=== PATIENT | male | born 1985 ===

== ENCOUNTER 2016-10-04 15:19 | Inpatient (IN) | payer OTHER ==
[2016-10-04] MEDS ORDERED: GEODON IM ONE ×2 (18:06→18:10)
--- NOTE | 2016-10-04 18:13 | Emergency Department Report ---
HPI - General Chief Complaint: Psych Time Seen by Provider: 10/04/16 18:06 - HPI HPI: This is a 31-year-old male who is unable to give the history. Information obtained from his father at bedside. Patient is brought to ED in handcuffs accompanied by PD. Father stated the patient has a history of schizophrenia lives in [place] where he gets his care. The patient is down here visiting when today he started behaving strangely according to his housemates. Patient became unresponsive to verbal command was walking around the house and had violent tendencies. He was hitting mantilla and other people's cars. ED Past Medical Hx - Medications Home Medications: Home Medications Medication Instructions Recorded Confirmed Last Taken Type Albuterol Sulfate [Ventolin HFA] 2 puff IH Q4H PRN 10/04/16 10/04/16 Unknown History ED Review of Systems ROS: Stated complaint: MH EVAL Other details as noted in HPI Comment: Unobtainable due to pts medical conditions Physical Exam - Physical Exam Physical Exam: Gen. alert and oriented 3 in no distress Head atraumatic normocephalic Eyes PERR LA EOMI Chest regular rate and rhythm normal S1-S2 lungs clear bilaterally Abdomen soft nondistended Back no point tenderness paravertebral tenderness Neuro no focal deficit. Psych agitation, auditory hallucinations, delusions, violent behavior requiring restraints by PD. ED Course - Reevaluation(s) Reevaluation #1: 10/05/16 01:42 Repeated vital signs are within normal limits. Initial elevated heart rate and temperature with likely due to the acute psychosis. And patient agitation prior to being brought to the ED. ED Medical Decision Making - Lab Data Result diagrams: 10/04/16 20:35 10/04/16 20:52 Critical care attestation.: If time is entered above; I have spent that time in minutes in the direct care of this critically ill patient, excluding procedure time. ED Disposition Clinical Impression: Acute psychosis Condition: Stable Referrals: PRIMARY CARE, [Primary Care Provider] - 3-5 Days
[2016-10-04 19:42] LABS: Urine Drugs of Abuse Note Disclamer
[2016-10-04 20:07] LABS: Bilirubin,Urine NEG (Negative); Blood,Urine MOD (Negative); Ketones,Urine 20 mg/dL (Negative); Leukocyte Esterase,Urine NEG (Negative); Nitrite,Urine NEG (Negative)
[2016-10-04 20:14] LABS: Anion Gap TNR mmol/L; Blood Urea Nitrogen TNR mg/dL (9-20); Carbon Dioxide TNR mmol/L (22-30); Chloride TNR mmol/L (98-107); Potassium TNR mmol/L (3.6-5.0); Sodium TNR mmol/L (137-145)
[2016-10-04 20:15] LABS: Alanine Aminotransferase TNR units/L (7-56); Albumin TNR g/dL (3.9-5); Albumin/Globulin Ratio TNR %; Alkaline Phosphatase TNR units/L (35-129); BUN/Creatinine Ratio TNR; Bilirubin,Total TNR mg/dL (0.1-1.2); Calcium TNR mg/dL (8.4-10.2); Glucose TNR mg/dL (75-100); Total Protein TNR g/dL (6.3-8.2)
[2016-10-04 21:13] LABS: Anion Gap 24 mmol/L; Blood Urea Nitrogen 13 mg/dL (9-20); Calcium 9.7 mg/dL (8.4-10.2); Carbon Dioxide 20 mmol/L (22-30); Chloride 97.5 mmol/L (98-107); Glucose 150 mg/dL (75-100); Potassium 3.3 mmol/L (3.6-5.0); Sodium 138 mmol/L (137-145)
[2016-10-04 21:26] LABS: Hematocrit 42.8 % (35.5-45.6); Hemoglobin 14.3 gm/dl (11.8-15.2); Mean Corpuscular HGB Conc 33 % (32-34); Mean Corpuscular Hemoglobin 27 pg (28-32); Mean Corpuscular Volume 81 fl (84-94); Platelet Count 340 K/mm3 (140-440); Red Blood Count 5.29 M/mm3 (3.65-5.03); Red Cell Distribution Width 14.1 % (13.2-15.2); White Blood Count 11.9 K/mm3 (4.5-11.0)
[2016-10-05] MEDS ORDERED: NACL 0.9% 1000 ML 1,000 ML IV ONE (10:15)
--- NOTE | 2016-10-05 10:25 | Emergency Department Report ---
Blank Doc - Documentation Documentation: Spoke with ENGINEERING RECRUITER who states he added a CK given the patient's aviator and rigidity. CK comes back elevated at >1500. I subsequently contacted the hospitalist for admission for rhabdomyolysis. 1 L of normal saline ordered
[2016-10-05] MEDS ORDERED: MORPHINE IV PRN (10:44)
[2016-10-05] MEDS ORDERED: TYLENOL PO PRN (10:44)
[2016-10-05] MEDS ORDERED: ZOFRAN IV PRN (10:44)
[2016-10-05] MEDS ORDERED: DULCOLAX PR PRN (10:44)
--- NOTE | 2016-10-05 11:10 | History and Physical Report ---
<COREY SIEGEL - Last Filed: 10/05/16 10:51> History of Present Illness Date of examination: 10/05/16 Date of admission: 10/05/2016 Chief complaint: Schizophrenia, acute psychosis History of present illness: Patient is a 31 years old male with past medical history of schizophrenia. Patient confused, agitated making disoriented statements, therefore, unable to obtain history. Patient came today to the emergency department in handcuffs accompanied by police magistrate for acute psychosis. Patient was found by his roommates confused yelling, tensed up. Father stated that patient became unresponsive to verbal command walking around the house and had violent tendencies. History obtained form ER physician and charts. Past History Past Medical History: other (schizophrenia) Past Surgical History: No surgical history Social history: no significant social history Family history: no significant family history Medications and Allergies Allergies Allergy/AdvReac Type Severity Reaction Status Date / Time No Known Allergies Allergy Unverified 10/04/16 18:14 Home Medications Medication Instructions Recorded Confirmed Last Taken Type Albuterol Sulfate [Ventolin HFA] 2 puff IH Q4H PRN 10/04/16 10/04/16 Unknown History Active Meds: Active Medications Sodium Chloride (Nacl 0.9% 1000 Ml) 1,000 mls @ 999 mls/hr IV ONCE ONE Stop: 10/05/16 11:15 Review of Systems ROS unobtainable: due to mental status (unable to obtained due to patient mental status) Exam - Constitutional Vitals: Temp Pulse Resp BP Pulse Ox 98.6 F 107 H 17 120/75 98 10/05/16 08:41 10/05/16 08:41 10/05/16 08:41 10/05/16 08:41 10/05/16 08:41 General appearance: Present: no acute distress - EENT Eyes: Present: PERRL ENT: other (ladonna) - Neck Neck: Present: supple - Respiratory Respiratory effort: normal Respiratory: bilateral: CTA - Cardiovascular Heart rate: 107 Rhythm: regular - Extremities Extremities: no ischemia, No edema Peripheral Pulses: within normal limits - Abdominal General gastrointestinal: Present: soft, non-tender Male genitourinary: Present: deferred - Rectal Rectal Exam: deferred - Integumentary Integumentary: Present: clear, warm, dry - Psychiatric Psychiatric: agitated (yelling and angry) - Neurologic Neurologic: moves all extremities - Allied Health Allied health notes reviewed: nursing Results - Labs CBC & Chem 7: 10/04/16 20:35 10/04/16 20:52 Labs: Laboratory Last Values WBC 11.9 K/mm3 (4.5-11.0) H 10/04/16 20:35 RBC 5.29 M/mm3 (3.65-5.03) H 10/04/16 20:35 Hgb 14.3 gm/dl (11.8-15.2) 10/04/16 20:35 Hct 42.8 % (35.5-45.6) 10/04/16 20:35 MCV 81 fl (84-94) L 10/04/16 20:35 MCH 27 pg (28-32) L 10/04/16 20:35 MCHC 33 % (32-34) 10/04/16 20:35 RDW 14.1 % (13.2-15.2) 10/04/16 20:35 Plt Count 340 K/mm3 (140-440) 10/04/16 20:35 Lymph % (Auto) Dermatopathologist 10/04/16 20:35 Parker % (Auto) Dermatopathologist 10/04/16 20:35 Eos % (Auto) Dermatopathologist 10/04/16 20:35 Baso % (Auto) Dermatopathologist 10/04/16 20:35 Lymph # Dermatopathologist 10/04/16 20:35 Parker # Dermatopathologist 10/04/16 20:35 Eos # Dermatopathologist 10/04/16 20:35 Baso # Dermatopathologist 10/04/16 20:35 Seg Neutrophils % Dermatopathologist 10/04/16 20:35 Seg Neutrophils # Dermatopathologist 10/04/16 20:35 Sodium 138 mmol/L (137-145) 10/04/16 20:52 Potassium 3.3 mmol/L (3.6-5.0) L 10/04/16 20:52 Chloride 97.5 mmol/L (98-107) L 10/04/16 20:52 Carbon Dioxide 20 mmol/L (22-30) L 10/04/16 20:52 Anion Gap 24 mmol/L 10/04/16 20:52 BUN 13 mg/dL (9-20) 10/04/16 20:52 Creatinine 1.0 mg/dL (0.8-1.5) 10/04/16 20:52 Estimated GFR > 60 ml/min 10/04/16 20:52 BUN/Creatinine Ratio 13.00 % 10/04/16 20:52 Glucose 150 mg/dL (75-100) H 10/04/16 20:52 Calcium 9.7 mg/dL (8.4-10.2) 10/04/16 20:52 Total Bilirubin TNR 10/04/16 19:30 AST TNR 10/04/16 19:30 ALT TNR 10/04/16 19:30 Alkaline Phosphatase TNR 10/04/16 19:30 Total Creatine Kinase 1555 units/L (55-170) H 10/05/16 08:44 Total Protein TNR 10/04/16 19:30 Albumin TNR 10/04/16 19:30 Albumin/Globulin Ratio TNR 10/04/16 19:30 Urine Color Stefanie (Yellow) 10/04/16 19:30 Urine Turbidity Clear (Clear) 10/04/16 19:30 Urine pH 6.0 (5.0-7.0) 10/04/16 19:30 Ur Specific [place] 1.030 (1.003-1.030) 10/04/16 19:30 Urine Protein 100 mg/dl mg/dL (Negative) 10/04/16 19:30 Urine Glucose (UA) 50 mg/dL (Negative) 10/04/16 19:30 Urine Ketones 20 mg/dL (Negative) 10/04/16 19:30 Urine Blood Mod (Negative) 10/04/16 19:30 Urine Nitrite Neg (Negative) 10/04/16 19:30 Urine Bilirubin Neg (Negative) 10/04/16 19:30 Urine Urobilinogen 2.0 mg/dL (<2.0) 10/04/16 19:30 Ur Leukocyte Esterase Neg (Negative) 10/04/16 19:30 Urine WBC (Auto) 5.0 /HPF (0.0-6.0) 10/04/16 19:30 Urine RBC (Auto) 110.0 /HPF (0.0-6.0) 10/04/16 19:30 Urine Opiates Screen Presumptive negative 10/04/16 19:30 Urine Methadone Screen Presumptive negative 10/04/16 19:30 Ur Barbiturates Screen Presumptive positive 10/04/16 19:30 Ur Phencyclidine Scrn Presumptive negative 10/04/16 19:30 Ur Amphetamines Screen Presumptive negative 10/04/16 19:30 U Benzodiazepines Scrn Presumptive negative 10/04/16 19:30 Urine Cocaine Screen Presumptive negative 10/04/16 19:30 U Marijuana (THC) Screen Presumptive negative 10/04/16 19:30 Drugs of Abuse Note Disclamer 10/04/16 19:30 Plasma/Serum Alcohol < 0.01 gm% (0-0.07) 10/04/16 20:52 Assessment and Plan Assessment and plan: ASSESSMENT/PLAN Rhabdomyolysis We will admit to the MED/SURG floor. Elevated Creatine Kinase IVF hydration Hypokalemia Replaced with 40MEQ potassium Closely monitor electrolytes Leukocytosis We will repeat CBC in live AM Acute psychosis Patient on 10:13 Bilateral soft wrist restraint Mental health consulted DVT prophylaxis Lovenox <MARLON LOFTON R - Last Filed: 10/05/16 11:52> Exam - Constitutional Vitals: Temp Pulse Resp BP Pulse Ox 98.6 F 109 H 15 128/67 97 10/05/16 08:41 10/05/16 11:16 10/05/16 11:16 10/05/16 11:16 10/05/16 10:46 Results - Labs CBC & Chem 7: 10/04/16 20:35 10/04/16 20:52 Labs: Laboratory Last Values WBC 11.9 K/mm3 (4.5-11.0) H 10/04/16 20:35 RBC 5.29 M/mm3 (3.65-5.03) H 10/04/16 20:35 Hgb 14.3 gm/dl (11.8-15.2) 10/04/16 20:35 Hct 42.8 % (35.5-45.6) 10/04/16 20:35 MCV 81 fl (84-94) L 10/04/16 20:35 MCH 27 pg (28-32) L 10/04/16 20:35 MCHC 33 % (32-34) 10/04/16 20:35 RDW 14.1 % (13.2-15.2) 10/04/16 20:35 Plt Count 340 K/mm3 (140-440) 10/04/16 20:35 Lymph % (Auto) Dermatopathologist 10/04/16 20:35 Parker % (Auto) Dermatopathologist 10/04/16 20:35 Eos % (Auto) Dermatopathologist 10/04/16 20:35 Baso % (Auto) Dermatopathologist 10/04/16 20:35 Lymph # Dermatopathologist 10/04/16 20:35 Parker # Dermatopathologist 10/04/16 20:35 Eos # Dermatopathologist 10/04/16 20:35 Baso # Dermatopathologist 10/04/16 20:35 Seg Neutrophils % Dermatopathologist 10/04/16 20:35 Seg Neutrophils # Dermatopathologist 10/04/16 20:35 Sodium 138 mmol/L (137-145) 10/04/16 20:52 Potassium 3.3 mmol/L (3.6-5.0) L 10/04/16 20:52 Chloride 97.5 mmol/L (98-107) L 10/04/16 20:52 Carbon Dioxide 20 mmol/L (22-30) L 10/04/16 20:52 Anion Gap 24 mmol/L 10/04/16 20:52 BUN 13 mg/dL (9-20) 10/04/16 20:52 Creatinine 1.0 mg/dL (0.8-1.5) 10/04/16 20:52 Estimated GFR > 60 ml/min 10/04/16 20:52 BUN/Creatinine Ratio 13.00 % 10/04/16 20:52 Glucose 150 mg/dL (75-100) H 10/04/16 20:52 Calcium 9.7 mg/dL (8.4-10.2) 10/04/16 20:52 Total Bilirubin TNR 10/04/16 19:30 AST TNR 10/04/16 19:30 ALT TNR 10/04/16 19:30 Alkaline Phosphatase TNR 10/04/16 19:30 Total Creatine Kinase 1555 units/L (55-170) H 10/05/16 08:44 Total Protein TNR 10/04/16 19:30 Albumin TNR 10/04/16 19:30 Albumin/Globulin Ratio TNR 10/04/16 19:30 Urine Color Stefanie (Yellow) 10/04/16 19:30 Urine Turbidity Clear (Clear) 10/04/16 19:30 Urine pH 6.0 (5.0-7.0) 10/04/16 19:30 Ur Specific [place] 1.030 (1.003-1.030) 10/04/16 19:30 Urine Protein 100 mg/dl mg/dL (Negative) 10/04/16 19:30 Urine Glucose (UA) 50 mg/dL (Negative) 10/04/16 19:30 Urine Ketones 20 mg/dL (Negative) 10/04/16 19:30 Urine Blood Mod (Negative) 10/04/16 19:30 Urine Nitrite Neg (Negative) 10/04/16 19:30 Urine Bilirubin Neg (Negative) 10/04/16 19:30 Urine Urobilinogen 2.0 mg/dL (<2.0) 10/04/16 19:30 Ur Leukocyte Esterase Neg (Negative) 10/04/16 19:30 Urine WBC (Auto) 5.0 /HPF (0.0-6.0) 10/04/16 19:30 Urine RBC (Auto) 110.0 /HPF (0.0-6.0) 10/04/16 19:30 Urine Opiates Screen Presumptive negative 10/04/16 19:30 Urine Methadone Screen Presumptive negative 10/04/16 19:30 Ur Barbiturates Screen Presumptive positive 10/04/16 19:30 Ur Phencyclidine Scrn Presumptive negative 10/04/16 19:30 Ur Amphetamines Screen Presumptive negative 10/04/16 19:30 U Benzodiazepines Scrn Presumptive negative 10/04/16 19:30 Urine Cocaine Screen Presumptive negative 10/04/16 19:30 U Marijuana (THC) Screen Presumptive negative 10/04/16 19:30 Drugs of Abuse Note Disclamer 10/04/16 19:30 Plasma/Serum Alcohol < 0.01 gm% (0-0.07) 10/04/16 20:52
[2016-10-05] MEDS ORDERED: K-DUR PO ONE (11:37)
[2016-10-05] MEDS ORDERED: KCL 10MEQ/100ML 10 MEQ/100 ML BAG IV SCH (13:00)
[2016-10-05] MEDS: KCL 10MEQ/100ML 10 MEQ/100 ML BAG IV SCH ×2 (13:19→14:42)
[2016-10-05] MEDS: NACL 0.9% 1000 ML 1,000 ML IV SCH ×2 (15:53→20:23)
--- NOTE | 2016-10-05 15:58 | Admit Criteria Form ---
Admission Criteria Documentation: MUSCULOSKELETAL DISEASE GRG Clinical Indications for Admission to Inpatient Care (Place 'X' for any and all applicable criteria): Hospital admission is needed for appropriate care of the patient because of 1 or more of the following: [ ]I. Fracture, dislocation, or other musculoskeletal injury requiring inpatient care(medical) as indicated by 1 or more of the following(4)(5)(6)(7) [ ]a) Vertebral fracture requiring observation for instability or neurologic compromise (8) [ ]b) Compartment syndrome (proven or cannot be ruled out during observation level of care) (9) [ ]c) Limb-threatening injury [ ]d) Major injury requiring inpatient stabilization such as traction initiation or external fixation before internal fixation or closure of complex or open fracture [ ]e) Major injury requiring inpatient treatment after emergency or observation level care (as appropriate) [ ]f) Severe pain requiring acute inpatient management [ ]g) Injury with suspicion of abuse or neglect (eg., child, dependent elderly) [ ]II. Newly diagnosed or suspected bone, joint, or orthopedic device infection (e.g., osteomyelitis, septic arthritis) needing 1 or more of the following(1)(2)(3) [ ]a) IV antibiotics that cannot be initiated in other than inpatient setting (e.g., patient too unstable or home infusion not available) [ ]b) Device removal or replacement [ ]c) Bone or soft tissue debridement [ ]d) Joint drainage (drain placement or repetitive aspirations) [ ]III. Severe rheumatologic disease (e.g., systemic lupus erythematosus, rheumatoid arthritis) with complications or comorbidities (Also use Optimal Recovery Care Criteria or General Recovery Criteria as appropriate on the basis of predominant condition), including 1 or more of the following( 10)(11)(12)(13) [ ]a) Severe infection (e.g., SWITCHMAN infection, sepsis) (14) [ ]b) Respiratory complications, including 1 or more of the following : [ ]i) Pleural effusion with respiratory compromise [ ]ii) Pulmonary hypertension with congestive failure [ ]iii) Respiratory failure [ ]iv) Pulmonary hemorrhage (15) [ ]c) Hematologic disease, including 1 or more of the following: [ ]i) Coagulopathy with bleeding [ ]ii) Thrombosis with hypercoagulable state [ ]iii) Thrombotic thrombocytopenic purpura [ ]d) Cerebritis with seizures, psychosis, or other severe abnormalities [ ]e) Vertebral destruction with monitoring needed for cervical myelopathy& possible respiratory compromise [ ]f) Exacerbation that requires inpatient treatment (e.g., intravenous immunosuppression) (16) [ ]g) Acute renal failure [ ]h) Cerebritis with seizures, psychosis, Altered mental status, or other neurologic abnormalities [ ]i) Pericardial effusion with tamponade [ ]j) Vertebral destruction, with monitoring needed for cervical myelopathy and possible respiratory compromise [ ]IV. Severe vasculitis with complications or comorbidities (Also use Optimal Recovery Care Criteria General Recovery Criteria as appropriate on the basis of predominant condition), including 1 or more of the following(11)(12)(17)(18)(19)(20) [ ]a) Exacerbation that requires inpatient treatment (e.g., intravenous immunosuppression) (19)(21) [ ]b) Pulmonary hemorrhage (15) [ ]c) SWITCHMAN vasculitis with seizures, psychosis, Altered mental status that is severe or persistent, or other severe abnormalities (22) [ ]d) Cerebral infarction [ ]e) Gastrointestinal ischemia [ ]f) Gangrene or threatened amputation [ ]g) Renal failure (16) [ ]h) Other significant complications of vasculitis ( eg., tissue or organ ischemia, organ dysfunction ) [ ]V. Severe myopathy as indicated by 1 or more of the following (28)(29) [ ]a) New onset of airway compromise or inability to swallow [ ]b) Respiratory deterioration with observation needed for impending respiratory failure [ ]c) Exacerbation that requires inpatient treatment (e.g., intravenous immunosuppression) [ ]. Severe crystal gout (arthropathy) indicated by 1 or more of the following (23)(24) [ ]a) Severe pain requiring acute inpatient management [ ]b) Exacerbation that requires inpatient treatment (e.g., intravenous treatment) [ X]VII.Rhabdomyolysis and 1 or more of the following (25)(26)(27) [ ]a) Acute renal failure [X ]b) Need for intravenous hydration after emergency or observation level care (as appropriate) [ ]c) Inability to maintain oral hydration [ ]d) Change in mental status [ ]e) Electrolyte abnormality that remains after emergency or observation level care (as appropriate) [ ]VIII Post amputation complication, as indicated by ANY ONE of the following [ ]a) Infection [ ]b) Dehiscence [ ]c) Myodesis failure [ ]IX. Severe pain requiring acute inpatient management due to musculoskeletal condition [ ]X. Musculoskeletal Disease and ALL of the following: [ ]a) Symptom or finding for which emergency and observation care have failed or are not considered appropriate (Use General Criteria: Observation Care as appropriate) [ ]b) Presence of ANY ONE of the following [ ]i) A General Admission Criteria [ ]ii) A Pediatric General Admission Criteria The original [facility] content created by [email or web address] has been revised. The portions of the content which have been revised are identified through the use of italic text or in bold, and [facility] has neither reviewed nor approved the modified material. All other unmodified content is copyright [email or web address]. Please see references footnoted in the original [email or web address] edition 2016 Admission Criteria Met: Yes
[2016-10-05] MEDS ORDERED: TYLENOL ONE (17:02)
--- NOTE | 2016-10-05 17:56 | Consultation ---
History of Present Illness - Reason for Consult Consult date: 10/05/16 Reason for consult: Mental Health Evaluation Requesting physician: LUNA YANCEY - Chief Complaint Chief complaint: "Patient Nonverbal" - History of Present Psychiatric Illness This is a 31-year-old male who is unable to give the history. His father stated the patient has a history of schizophrenia and lives in [place] where he gets his care. Today patient was nonverbal, minimum rigidity, with psychomotor retardation. No gestures of SI/HI's. Medications and Allergies Allergies Allergy/AdvReac Type Severity Reaction Status Date / Time No Known Allergies Allergy Unverified 10/04/16 18:14 Home Medications Medication Instructions Recorded Confirmed Last Taken Type Albuterol Sulfate [Ventolin HFA] 2 puff IH Q4H PRN 10/04/16 10/04/16 Unknown History Active Meds: Active Medications Acetaminophen (Tylenol) 650 mg PO Q4H PRN PRN Reason: Pain MILD(1-3)/Fever >100.5/FORRESTER Bisacodyl (Dulcolax) 10 mg MD QDAY PRN PRN Reason: Constipation unrelieved by MOM Enoxaparin Sodium (Lovenox) 40 mg SUB-Q DAILY STEWART Sodium Chloride (Nacl 0.9% 1000 Ml) 1,000 mls @ 100 mls/hr IV DIRECT STEWART Last Admin: 10/05/16 15:53 Dose: 100 mls/hr Morphine Sulfate (Morphine) 2 mg IV Q4H PRN PRN Reason: Pain , Severe (7-10) Ondansetron HCl (Zofran) 4 mg IV Q8H PRN PRN Reason: N/V unrelieved by Reglan Mental Status Exam - Vital signs Last Vital Signs Temp 98.3 F 10/05/16 17:20 Pulse 81 10/05/16 17:20 Resp 16 10/05/16 17:20 BP 149/92 10/05/16 17:20 Pulse Ox 97 10/05/16 17:20 - Exam Narrative exam: Unable to complete MSE. Results Result Diagrams: 10/04/16 20:35 10/04/16 20:52 All other labs normal. Assessment and Plan Assessment and plan: Impression: Historical Dx: Schizophrenia. Today patient was nonverbal, minimum rigidity, with psychomotor retardation. No gestures of SI/HI's. CK 1555. Possible catatonia. DDx: R/O Brief Psychotic DO Recommendation/Plan: Continue 1013 with placement to patient psy sevices. Start Ativan 1 mg IM TID for catatonia. V/S Q4hs and O2 sats. Continue GI/PE prophylaxis. Gather collateral information to determine treatment.
[2016-10-05] MEDS: ATIVAN IM SCH (18:54)
[2016-10-06] MEDS: ATIVAN IM SCH ×3 (00:35→15:48)
[2016-10-06] MEDS: NACL 0.9% 1000 ML 1,000 ML IV SCH (06:34)
[2016-10-06 07:06] LABS: Basophils % (Auto) 0.4 % (0.0-1.8); Eosinophils % (Auto) 1.2 % (0.0-4.3); Hemoglobin 12.7 gm/dl (11.8-15.2); Mean Corpuscular HGB Conc 33 % (32-34); Mean Corpuscular Hemoglobin 26 pg (28-32); Mean Corpuscular Volume 81 fl (84-94); Platelet Count 291 K/mm3 (140-440); Red Blood Count 4.82 M/mm3 (3.65-5.03); Red Cell Distribution Width 14.2 % (13.2-15.2); White Blood Count 11.3 K/mm3 (4.5-11.0)
[2016-10-06 07:14] LABS: Anion Gap 26 mmol/L; BUN/Creatinine Ratio 16.25; Blood Urea Nitrogen 13 mg/dL (9-20); Calcium 8.3 mg/dL (8.4-10.2); Carbon Dioxide 19 mmol/L (22-30); Chloride 106.7 mmol/L (98-107); Glucose 78 mg/dL (75-100); Potassium 3.4 mmol/L (3.6-5.0); Sodium 148 mmol/L (137-145)
--- NOTE | 2016-10-06 07:21 | Progress Note ---
Assessment and Plan Assessment and plan: Patient is a 31 years old male with past medical history of schizophrenia. brought in by police for acute agitation/and psychosis Acute psychosis Patient on 10:13 Bilateral soft wrist restraint Mental health consulted nonverbal, minimum rigidity, with psychomotor retardation. No gestures of SI/HI' s. CK 1555. Possible catatonia. Rhabdomyolysis Elevated Creatine Kinase continue IVF hydration Hypokalemia/Hypernatremia has been replaced, switch IVF for NS to half NS Closely monitor electrolytes Leukocytosis stable, no sign of infection DVT prophylaxis History Interval history: patient still confused and actively psychotic on 1013 Hospitalist Physical - Physical exam Narrative exam: General: Patient appears well in no distress HEENT: MMM, EOMI cardiac: S1-S2 heard lungs: clear to auscultation, abdomen: soft, nontender, nondistended bowel sounds positive extremities: no edema clubbing or cyanosis Skin: no rash or lesion Neuro: no focal deficit Psych: lacks insight, disorganized - Constitutional Vitals: Temp Pulse Resp BP Pulse Ox 98.3 F 81 16 149/92 97 10/05/16 17:20 10/05/16 17:20 10/05/16 17:20 10/05/16 17:20 10/05/16 17:20 General appearance: Present: no acute distress Results - Labs CBC & Chem 7: 10/06/16 06:33 10/06/16 06:33 Labs: Laboratory Last Values WBC 11.3 K/mm3 (4.5-11.0) H 10/06/16 06:33 RBC 4.82 M/mm3 (3.65-5.03) 10/06/16 06:33 Hgb 12.7 gm/dl (11.8-15.2) 10/06/16 06:33 Hct 39.0 % (35.5-45.6) 10/06/16 06:33 MCV 81 fl (84-94) L 10/06/16 06:33 MCH 26 pg (28-32) L 10/06/16 06:33 MCHC 33 % (32-34) 10/06/16 06:33 RDW 14.2 % (13.2-15.2) 10/06/16 06:33 Plt Count 291 K/mm3 (140-440) 10/06/16 06:33 Lymph % (Auto) 22.2 % (13.4-35.0) 10/06/16 06:33 Harmon % (Auto) 8.6 % (0.0-7.3) H 10/06/16 06:33 Eos % (Auto) 1.2 % (0.0-4.3) 10/06/16 06:33 Baso % (Auto) 0.4 % (0.0-1.8) 10/06/16 06:33 Lymph # 2.5 K/mm3 (1.2-5.4) 10/06/16 06:33 Harmon # 1.0 K/mm3 (0.0-0.8) H 10/06/16 06:33 Eos # 0.1 K/mm3 (0.0-0.4) 10/06/16 06:33 Baso # 0.0 K/mm3 (0.0-0.1) 10/06/16 06:33 Seg Neutrophils % 67.6 % (40.0-70.0) 10/06/16 06:33 Seg Neutrophils # 7.6 K/mm3 (1.8-7.7) 10/06/16 06:33 Sodium 138 mmol/L (137-145) 10/04/16 20:52 Potassium 3.4 mmol/L (3.6-5.0) L 10/06/16 06:33 Chloride 106.7 mmol/L (98-107) 10/06/16 06:33 Carbon Dioxide 19 mmol/L (22-30) L 10/06/16 06:33 Anion Gap 26 mmol/L 10/06/16 06:33 BUN 13 mg/dL (9-20) 10/06/16 06:33 Creatinine 0.8 mg/dL (0.8-1.5) 10/06/16 06:33 Estimated GFR > 60 ml/min 10/06/16 06:33 BUN/Creatinine Ratio 16.25 % 10/06/16 06:33 Glucose 78 mg/dL (75-100) 10/06/16 06:33 Calcium 8.3 mg/dL (8.4-10.2) L 10/06/16 06:33 Total Bilirubin TNR 10/04/16 19:30 AST TNR 10/04/16 19:30 ALT TNR 10/04/16 19:30 Alkaline Phosphatase TNR 10/04/16 19:30 Total Creatine Kinase 1555 units/L (55-170) H 10/05/16 08:44 Total Protein TNR 10/04/16 19:30 Albumin TNR 10/04/16 19:30 Albumin/Globulin Ratio TNR 10/04/16 19:30 Urine Color Stefanie (Yellow) 10/04/16 19:30 Urine Turbidity Clear (Clear) 10/04/16 19:30 Urine pH 6.0 (5.0-7.0) 10/04/16 19:30 Ur Specific [place] 1.030 (1.003-1.030) 10/04/16 19:30 Urine Protein 100 mg/dl mg/dL (Negative) 10/04/16 19:30 Urine Glucose (UA) 50 mg/dL (Negative) 10/04/16 19:30 Urine Ketones 20 mg/dL (Negative) 10/04/16 19:30 Urine Blood Mod (Negative) 10/04/16 19:30 Urine Nitrite Neg (Negative) 10/04/16 19:30 Urine Bilirubin Neg (Negative) 10/04/16 19:30 Urine Urobilinogen 2.0 mg/dL (<2.0) 10/04/16 19:30 Ur Leukocyte Esterase Neg (Negative) 10/04/16 19:30 Urine WBC (Auto) 5.0 /HPF (0.0-6.0) 10/04/16 19:30 Urine RBC (Auto) 110.0 /HPF (0.0-6.0) 10/04/16 19:30 Urine Opiates Screen Presumptive negative 10/04/16 19:30 Urine Methadone Screen Presumptive negative 10/04/16 19:30 Ur Barbiturates Screen Presumptive positive 10/04/16 19:30 Ur Phencyclidine Scrn Presumptive negative 10/04/16 19:30 Ur Amphetamines Screen Presumptive negative 10/04/16 19:30 U Benzodiazepines Scrn Presumptive negative 10/04/16 19:30 Urine Cocaine Screen Presumptive negative 10/04/16 19:30 U Marijuana (THC) Screen Presumptive negative 10/04/16 19:30 Drugs of Abuse Note Disclamer 10/04/16 19:30 Plasma/Serum Alcohol < 0.01 gm% (0-0.07) 10/04/16 20:52
[2016-10-06] MEDS ORDERED: PROVENTIL IH PRN (07:24)
[2016-10-06] MEDS: K-DUR PO SCH (09:37)
[2016-10-06] MEDS: LOVENOX SUB-Q SCH (09:38)
[2016-10-06] MEDS: NACL 0.45% 1000 ML 1,000 ML IV SCH (12:49)
--- NOTE | 2016-10-06 17:55 | Progress Note ---
Subjective - Reason for Consult Consult date: 10/06/16 Reason for consult: Psychiatry Follow-up - Chief Complaint Chief complaint: "Patient Nonverbal" Patient is a 31 years old male with past medical history of schizophrenia. brought in by police for acute agitation/and psychosis. Today patient is calm, cooperative, but confused. He was released from his restraints and followed commands. I assisted the patient to the restroom. He was steady on his gait. He stated that he took Zyprexa for schizophrenia in the past. He was not able to tell me why he was brought to [facility]. He could not tell me his father' s name when asked. His father brought patient to the ER. He denies recreational drug use and excessive alcohol consumption (etoh). Mental Status Exam - Vital signs Last Vital Signs Temp 97.7 F 10/06/16 16:00 Pulse 107 H 10/06/16 16:00 Resp 20 10/06/16 16:00 BP 112/61 10/06/16 16:00 Pulse Ox 97 10/06/16 16:00 - Exam Narrative exam: MSE: Appearance: calm, cooperative Behavior: regular eye contact Speech: regular rate and tone Mood: "I'm not sure" Affect: flat Thought Process: circumstantial Thought Content: denies SI/HI's and AVH's Motor Activity: ambulatory Cognition: A/Ox 2 Insight: limited Judgment: limited Assessment and Plan Impression: Historical Dx: Schizophrenia. Today patient was calm and cooperative. Denies SI/HI's. Possible catatonia. Restraint free. Recommendation/Plan: Continue 1013 with placement to patient psy sevices. Modified Ativan 1 mg to PO TID for catatonia. V/S Q4hs and O2 sats. Continue GI/ DVT prophylaxis. Continue to gather collateral information to determine treatment. D/C restraints, use 1:1 sitter instead. Consider antipsychotic in 24 hours.
[2016-10-06] MEDS: ATIVAN PO SCH (20:34)
[2016-10-07] MEDS: ATIVAN PO SCH ×3 (08:44→21:05)
[2016-10-07] MEDS: K-DUR PO SCH (11:53)
[2016-10-07] MEDS: LOVENOX SUB-Q SCH (11:54)
--- NOTE | 2016-10-07 15:29 | Progress Note ---
Assessment and Plan Assessment and plan: Patient is a 31 years old male with past medical history of schizophrenia. brought in by police for acute agitation/and psychosis Acute psychosis Patient on 10:13 Bilateral soft wrist restraint Mental health consulted nonverbal, minimum rigidity, with psychomotor retardation. No gestures of SI/HI' s. CK 1555. Possible catatonia. Rhabdomyolysis Elevated Creatine Kinase continue IVF hydration Hypokalemia/Hypernatremia has been replaced, switch IVF for NS to half NS Closely monitor electrolytes Leukocytosis stable, no sign of infection DVT prophylaxis lovenox History Interval history: patient still confused and actively psychotic on 1013 Hospitalist Physical - Physical exam Narrative exam: General: Patient appears well in no distress HEENT: MMM, EOMI cardiac: S1-S2 heard lungs: clear to auscultation, abdomen: soft, nontender, nondistended bowel sounds positive extremities: no edema clubbing or cyanosis Skin: no rash or lesion Neuro: no focal deficit Psych: lacks insight, disorganized - Constitutional Vitals: Temp Pulse Resp BP Pulse Ox 98.2 F 95 H 18 115/62 100 10/07/16 15:00 10/07/16 15:00 10/07/16 15:00 10/07/16 15:00 10/07/16 15:00 General appearance: Present: no acute distress Results - Labs CBC & Chem 7: 10/06/16 06:33 10/06/16 06:33 Labs: Laboratory Last Values WBC 11.3 K/mm3 (4.5-11.0) H 10/06/16 06:33 RBC 4.82 M/mm3 (3.65-5.03) 10/06/16 06:33 Hgb 12.7 gm/dl (11.8-15.2) 10/06/16 06:33 Hct 39.0 % (35.5-45.6) 10/06/16 06:33 MCV 81 fl (84-94) L 10/06/16 06:33 MCH 26 pg (28-32) L 10/06/16 06:33 MCHC 33 % (32-34) 10/06/16 06:33 RDW 14.2 % (13.2-15.2) 10/06/16 06:33 Plt Count 291 K/mm3 (140-440) 10/06/16 06:33 Lymph % (Auto) 22.2 % (13.4-35.0) 10/06/16 06:33 [place] % (Auto) 8.6 % (0.0-7.3) H 10/06/16 06:33 Eos % (Auto) 1.2 % (0.0-4.3) 10/06/16 06:33 Baso % (Auto) 0.4 % (0.0-1.8) 10/06/16 06:33 Lymph # 2.5 K/mm3 (1.2-5.4) 10/06/16 06:33 [place] # 1.0 K/mm3 (0.0-0.8) H 10/06/16 06:33 Eos # 0.1 K/mm3 (0.0-0.4) 10/06/16 06:33 Baso # 0.0 K/mm3 (0.0-0.1) 10/06/16 06:33 Seg Neutrophils % 67.6 % (40.0-70.0) 10/06/16 06:33 Seg Neutrophils # 7.6 K/mm3 (1.8-7.7) 10/06/16 06:33 Sodium 148 mmol/L (137-145) H D 10/06/16 06:33 Potassium 3.4 mmol/L (3.6-5.0) L 10/06/16 06:33 Chloride 106.7 mmol/L (98-107) 10/06/16 06:33 Carbon Dioxide 19 mmol/L (22-30) L 10/06/16 06:33 Anion Gap 26 mmol/L 10/06/16 06:33 BUN 13 mg/dL (9-20) 10/06/16 06:33 Creatinine 0.8 mg/dL (0.8-1.5) 10/06/16 06:33 Estimated GFR > 60 ml/min 10/06/16 06:33 BUN/Creatinine Ratio 16.25 % 10/06/16 06:33 Glucose 78 mg/dL (75-100) 10/06/16 06:33 Calcium 8.3 mg/dL (8.4-10.2) L 10/06/16 06:33 Total Bilirubin TNR 10/04/16 19:30 AST TNR 10/04/16 19:30 ALT TNR 10/04/16 19:30 Alkaline Phosphatase TNR 10/04/16 19:30 Total Creatine Kinase 3851 units/L (55-170) H 10/06/16 06:33 Total Protein TNR 10/04/16 19:30 Albumin TNR 10/04/16 19:30 Albumin/Globulin Ratio TNR 10/04/16 19:30 Urine Color Stefanie (Yellow) 10/04/16 19:30 Urine Turbidity Clear (Clear) 10/04/16 19:30 Urine pH 6.0 (5.0-7.0) 10/04/16 19:30 Ur Specific [place] 1.030 (1.003-1.030) 10/04/16 19:30 Urine Protein 100 mg/dl mg/dL (Negative) 10/04/16 19:30 Urine Glucose (UA) 50 mg/dL (Negative) 10/04/16 19:30 Urine Ketones 20 mg/dL (Negative) 10/04/16 19:30 Urine Blood Mod (Negative) 10/04/16 19:30 Urine Nitrite Neg (Negative) 10/04/16 19:30 Urine Bilirubin Neg (Negative) 10/04/16 19:30 Urine Urobilinogen 2.0 mg/dL (<2.0) 10/04/16 19:30 Ur Leukocyte Esterase Neg (Negative) 10/04/16 19:30 Urine WBC (Auto) 5.0 /HPF (0.0-6.0) 10/04/16 19:30 Urine RBC (Auto) 110.0 /HPF (0.0-6.0) 10/04/16 19:30 Urine Opiates Screen Presumptive negative 10/04/16 19:30 Urine Methadone Screen Presumptive negative 10/04/16 19:30 Ur Barbiturates Screen Presumptive positive 10/04/16 19:30 Ur Phencyclidine Scrn Presumptive negative 10/04/16 19:30 Ur Amphetamines Screen Presumptive negative 10/04/16 19:30 U Benzodiazepines Scrn Presumptive negative 10/04/16 19:30 Urine Cocaine Screen Presumptive negative 10/04/16 19:30 U Marijuana (THC) Screen Presumptive negative 10/04/16 19:30 Drugs of Abuse Note Disclamer 10/04/16 19:30 Plasma/Serum Alcohol < 0.01 gm% (0-0.07) 10/04/16 20:52
--- NOTE | 2016-10-07 18:57 | Progress Note ---
Subjective - Reason for Consult Consult date: 10/07/16 Reason for consult: follow up - Chief Complaint Chief complaint: "The hospital is doing something to me." Patient is a 31 years old male with past medical history of schizophrenia. He was brought in by police for acute agitation/and psychosis. Today patient is guarded and initially defensive. He was not in restraints. HE was sitting up in bed eating. He would not say if he has a history of schizophrenia. He expressed how he believes he is being held against his will. His initial presentation and reasons for admission, per the record, were explained. The second time, he stated, "ok." He would not discuss AVH, SI/HI. Mental Status Exam - Vital signs Last Vital Signs Temp 98.2 F 10/07/16 15:00 Pulse 95 H 10/07/16 15:00 Resp 18 10/07/16 15:00 BP 115/62 10/07/16 15:00 Pulse Ox 100 10/07/16 15:00 Assessment and Plan MSE: Appearance: suspicious of staff Behavior: regular eye contact Speech: regular rate and tone Mood: irritable Affect: flat Thought Process: circumstantial Thought Content: would not discuss SI/HI, AVH Motor Activity: ambulatory Cognition: A/Ox 3 Insight: limited Judgment: limited Assessment and Plan Impression: Historical Dx: Schizophrenia. Possible catatonia. Restraint free. Recommendation/Plan: Continue 1013 with placement to patient jb watkins. Continue Ativan 1 mg to PO TID for catatonia. No antipsychotic ordered at this time. Will monitor for s/s of NMS. Continue to gather collateral information to determine treatment. D/C restraints, use 1:1 sitter instead.
[2016-10-08 05:28] LABS: Anion Gap 18 mmol/L; Blood Urea Nitrogen 6 mg/dL (9-20); Calcium 8.3 mg/dL (8.4-10.2); Carbon Dioxide 23 mmol/L (22-30); Chloride 102.5 mmol/L (98-107); Glucose 103 mg/dL (75-100); Potassium 3.2 mmol/L (3.6-5.0); Sodium 140 mmol/L (137-145)
[2016-10-08 05:42] LABS: Creatine Kinase 4725 units/L (55-170)
[2016-10-08] MEDS: K-DUR PO SCH (09:51)
[2016-10-08] MEDS: LOVENOX SUB-Q SCH (09:51)
[2016-10-08] MEDS: ATIVAN PO SCH ×3 (09:52→20:19)
[2016-10-08] MEDS: NACL 0.45% 1000 ML 1,000 ML IV SCH (11:54)
[2016-10-08] MEDS: KCL 10MEQ/100ML 10 MEQ/100 ML BAG IV SCH ×4 (11:59→20:18)
--- NOTE | 2016-10-08 13:48 | Progress Note ---
Assessment and Plan Assessment and plan: Patient is a 31 years old male with past medical history of schizophrenia. brought in by police for acute agitation/and psychosis Acute psychosis Patient on 10:13 Bilateral soft wrist restraint Mental health consulted nonverbal, minimum rigidity, with psychomotor retardation. No gestures of SI/HI' s. CK 1555. Possible catatonia. UDS positive for Barbituates ANN/vasomotor nephropathy creatinine trending down now resolved sp IVF Rhabdomyolysis Elevated Creatine Kinase continue IVF hydration Hypernatremia- resolved with IVF Hypokalemia continue to replete Mg level is normal Closely monitor electrolytes Leukocytosis stable, no sign of infection DVT prophylaxis lovenox History Interval history: patient still confused and actively psychotic on 1013 Hospitalist Physical - Physical exam Narrative exam: General: Patient appears well in no distress HEENT: MMM, EOMI cardiac: S1-S2 heard lungs: clear to auscultation, abdomen: soft, nontender, nondistended bowel sounds positive extremities: no edema clubbing or cyanosis Skin: no rash or lesion Neuro: no focal deficit Psych: lacks insight, disorganized - Constitutional Vitals: Temp Pulse Resp BP Pulse Ox 100.1 F H 107 H 18 111/60 97 10/08/16 08:09 10/08/16 08:09 10/08/16 08:09 10/08/16 08:09 10/08/16 08:09 General appearance: Present: no acute distress Results - Labs CBC & Chem 7: 10/06/16 06:33 10/08/16 03:55 Labs: Laboratory Last Values WBC 11.3 K/mm3 (4.5-11.0) H 10/06/16 06:33 RBC 4.82 M/mm3 (3.65-5.03) 10/06/16 06:33 Hgb 12.7 gm/dl (11.8-15.2) 10/06/16 06:33 Hct 39.0 % (35.5-45.6) 10/06/16 06:33 MCV 81 fl (84-94) L 10/06/16 06:33 MCH 26 pg (28-32) L 10/06/16 06:33 MCHC 33 % (32-34) 10/06/16 06:33 RDW 14.2 % (13.2-15.2) 10/06/16 06:33 Plt Count 291 K/mm3 (140-440) 10/06/16 06:33 Lymph % (Auto) 22.2 % (13.4-35.0) 10/06/16 06:33 [place] % (Auto) 8.6 % (0.0-7.3) H 10/06/16 06:33 Eos % (Auto) 1.2 % (0.0-4.3) 10/06/16 06:33 Baso % (Auto) 0.4 % (0.0-1.8) 10/06/16 06:33 Lymph # 2.5 K/mm3 (1.2-5.4) 10/06/16 06:33 [place] # 1.0 K/mm3 (0.0-0.8) H 10/06/16 06:33 Eos # 0.1 K/mm3 (0.0-0.4) 10/06/16 06:33 Baso # 0.0 K/mm3 (0.0-0.1) 10/06/16 06:33 Seg Neutrophils % 67.6 % (40.0-70.0) 10/06/16 06:33 Seg Neutrophils # 7.6 K/mm3 (1.8-7.7) 10/06/16 06:33 Sodium 140 mmol/L (137-145) D 10/08/16 03:55 Potassium 3.2 mmol/L (3.6-5.0) L 10/08/16 03:55 Chloride 102.5 mmol/L (98-107) 10/08/16 03:55 Carbon Dioxide 23 mmol/L (22-30) 10/08/16 03:55 Anion Gap 18 mmol/L 10/08/16 03:55 BUN 6 mg/dL (9-20) L 10/08/16 03:55 Creatinine 0.6 mg/dL (0.8-1.5) L 10/08/16 03:55 Estimated GFR > 60 ml/min 10/08/16 03:55 BUN/Creatinine Ratio 10.00 % 10/08/16 03:55 Glucose 103 mg/dL (75-100) H 10/08/16 03:55 Calcium 8.3 mg/dL (8.4-10.2) L 10/08/16 03:55 Magnesium 2.10 mg/dL (1.7-2.3) 10/08/16 03:55 Total Bilirubin TNR 10/04/16 19:30 AST TNR 10/04/16 19:30 ALT TNR 10/04/16 19:30 Alkaline Phosphatase TNR 10/04/16 19:30 Total Creatine Kinase 4725 units/L (55-170) H 10/08/16 03:55 Total Protein TNR 10/04/16 19:30 Albumin TNR 10/04/16 19:30 Albumin/Globulin Ratio TNR 10/04/16 19:30 Urine Color Stefanie (Yellow) 10/04/16 19:30 Urine Turbidity Clear (Clear) 10/04/16 19:30 Urine pH 6.0 (5.0-7.0) 10/04/16 19:30 Ur Specific [place] 1.030 (1.003-1.030) 10/04/16 19:30 Urine Protein 100 mg/dl mg/dL (Negative) 10/04/16 19:30 Urine Glucose (UA) 50 mg/dL (Negative) 10/04/16 19:30 Urine Ketones 20 mg/dL (Negative) 10/04/16 19:30 Urine Blood Mod (Negative) 10/04/16 19:30 Urine Nitrite Neg (Negative) 10/04/16 19:30 Urine Bilirubin Neg (Negative) 10/04/16 19:30 Urine Urobilinogen 2.0 mg/dL (<2.0) 10/04/16 19:30 Ur Leukocyte Esterase Neg (Negative) 10/04/16 19:30 Urine WBC (Auto) 5.0 /HPF (0.0-6.0) 10/04/16 19:30 Urine RBC (Auto) 110.0 /HPF (0.0-6.0) 10/04/16 19:30 Urine Opiates Screen Presumptive negative 10/04/16 19:30 Urine Methadone Screen Presumptive negative 10/04/16 19:30 Ur Barbiturates Screen Presumptive positive 10/04/16 19:30 Ur Phencyclidine Scrn Presumptive negative 10/04/16 19:30 Ur Amphetamines Screen Presumptive negative 10/04/16 19:30 U Benzodiazepines Scrn Presumptive negative 10/04/16 19:30 Urine Cocaine Screen Presumptive negative 10/04/16 19:30 U Marijuana (THC) Screen Presumptive negative 10/04/16 19:30 Drugs of Abuse Note Disclamer 10/04/16 19:30 Plasma/Serum Alcohol < 0.01 gm% (0-0.07) 10/04/16 20:52
--- NOTE | 2016-10-08 16:00 | Progress Note ---
Subjective - Reason for Consult Consult date: 10/08/16 Reason for consult: Psychiatry Follow-up - Chief Complaint Chief complaint: "How are you" Patient is a 31 years old male with past medical history of schizophrenia. Today patient is calm, cooperative, but paranoid during the assessment. I asked him would he like to see his parents, He stated, "They may not be my parents." He stated that he felt like something is wrong with everything going on around him. He did admit to being scared about "something" which he could not explain what the "something" is currently. He denies SI/HI' s and VH's. He could not say if he was experiencing auditory hallucinations. Mental Status Exam - Vital signs Last Vital Signs Temp 100.1 F H 10/08/16 08:09 Pulse 107 H 10/08/16 08:09 Resp 18 10/08/16 08:09 BP 111/60 10/08/16 08:09 Pulse Ox 97 10/08/16 08:09 - Exam Narrative exam: MSE: Appearance: calm, cooperative Behavior: regular eye contact Speech: regular rate and tone Mood: "I don't know" Affect: flat Thought Process: circumstantial Thought Content: denies SI/HI's and AVH's, paranoid Motor Activity: ambulatory Cognition: A/Ox 2 Insight: limited Judgment: limited Assessment and Plan Impression: Historical Dx: Schizophrenia. Today patient was calm, cooperative but paranoid. Denies SI/HI's. Restraint free. CK 4716 Recommendation/Plan: Continue 1013 with placement to patient psy sevices. Continue Ativan 1 mg to PO TID for catatonia. V/S Q4hs and O2 sats. Continue GI/ DVT prophylaxis. Continue to gather collateral information to determine treatment. D/C restraints, use 1:1 sitter instead. Will monitor for NMS.
[2016-10-09] MEDS: NACL 0.45% 1000 ML 1,000 ML IV SCH ×2 (04:56→14:48)
[2016-10-09 06:31] LABS: Anion Gap 17 mmol/L; BUN/Creatinine Ratio 8.57; Blood Urea Nitrogen 6 mg/dL (9-20); Calcium 8.4 mg/dL (8.4-10.2); Carbon Dioxide 23 mmol/L (22-30); Chloride 103.6 mmol/L (98-107); Glucose 104 mg/dL (75-100); Potassium 3.8 mmol/L (3.6-5.0); Sodium 140 mmol/L (137-145)
[2016-10-09 06:45] LABS: Creatine Kinase 2421 units/L (55-170)
[2016-10-09] MEDS: K-DUR PO SCH (10:44)
[2016-10-09] MEDS: ATIVAN PO SCH ×2 (10:44→14:48)
[2016-10-09] MEDS: LOVENOX SUB-Q SCH (10:44)
--- NOTE | 2016-10-09 13:40 | Progress Note ---
Subjective - Reason for Consult Consult date: 10/09/16 Reason for consult: Psychiatry Follow-up - Chief Complaint Chief complaint: "How are you" Patient is a 31 years old male with past medical history of schizophrenia. Today patient is calm, cooperative, disorganized, and still paranoid during the assessment. He stated that he does not know why the nurses keep giving him injections (lovenox). I explained to him the rationale for lovenox, he stated, "If you say so." I observed him ambulate to the restroom without difficulty. When asked if he is suicidal/homicidal he stated, "I don't know anymore." He denies AVH's , feeling sad, hopeless, and helpless. Per the staff, no behavioral disturbances overnight. Mental Status Exam - Vital signs Last Vital Signs Temp 98.8 F 10/09/16 08:00 Pulse 99 H 10/09/16 08:00 Resp 20 10/09/16 08:00 BP 131/76 10/09/16 08:00 Pulse Ox 100 10/09/16 08:00 - Exam Narrative exam: MSE: Appearance: calm, cooperative Behavior: regular eye contact Speech: regular rate and tone Mood: "I'm not sure" Affect: flat Thought Process: circumstantial Thought Content: denies AVH's, paranoid, disorganize Motor Activity: ambulatory Cognition: A/Ox 3 Insight: limited Judgment: limited Assessment and Plan Impression: Historical Dx: Schizophrenia. Today patient was calm, cooperative, disorganized but still paranoid. Denies SI/HI's. Restraint free. CK 2421 trending down. Recommendation/Plan: Continue 1013 with placement to patient psy services. Continue Ativan 1 mg to PO TID for catatonia. V/S Q4hs and O2 sats. Continue GI/ DVT prophylaxis. Will consider antipsychotic for the paranoia and disorganized thought content once CK stabilize. Will continue to monitor for NMS.
--- NOTE | 2016-10-09 14:12 | Progress Note ---
Assessment and Plan Assessment and plan: Patient is a 31 years old male with past medical history of schizophrenia. brought in by police for acute agitation/and psychosis Acute psychosis Patient on 10:13 Bilateral soft wrist restraint Mental health consulted nonverbal, minimum rigidity, with psychomotor retardation. No gestures of SI/HI' s. CK 1555. Possible catatonia. UDS positive for Barbituates ANN/vasomotor nephropathy creatinine trending down now resolved sp IVF Rhabdomyolysis Elevated Creatine Kinase, improving continue IVF hydration Hypernatremia- resolved with IVF Hypokalemia continue to replete Mg level is normal Closely monitor electrolytes Leukocytosis stable, no sign of infection DVT prophylaxis lovenox History Interval history: patient still confused and actively psychotic on 1013 Hospitalist Physical - Physical exam Narrative exam: General: Patient appears well in no distress HEENT: MMM, EOMI cardiac: S1-S2 heard lungs: clear to auscultation, abdomen: soft, nontender, nondistended bowel sounds positive extremities: no edema clubbing or cyanosis Skin: no rash or lesion Neuro: no focal deficit Psych: lacks insight, disorganized - Constitutional Vitals: Temp Pulse Resp BP Pulse Ox 98.8 F 99 H 20 131/76 100 10/09/16 08:00 10/09/16 08:00 10/09/16 08:00 10/09/16 08:00 10/09/16 08:00 General appearance: Present: no acute distress Results - Labs CBC & Chem 7: 10/06/16 06:33 10/09/16 05:01 Labs: Laboratory Last Values WBC 11.3 K/mm3 (4.5-11.0) H 10/06/16 06:33 RBC 4.82 M/mm3 (3.65-5.03) 10/06/16 06:33 Hgb 12.7 gm/dl (11.8-15.2) 10/06/16 06:33 Hct 39.0 % (35.5-45.6) 10/06/16 06:33 MCV 81 fl (84-94) L 10/06/16 06:33 MCH 26 pg (28-32) L 10/06/16 06:33 MCHC 33 % (32-34) 10/06/16 06:33 RDW 14.2 % (13.2-15.2) 10/06/16 06:33 Plt Count 291 K/mm3 (140-440) 10/06/16 06:33 Lymph % (Auto) 22.2 % (13.4-35.0) 10/06/16 06:33 [place] % (Auto) 8.6 % (0.0-7.3) H 10/06/16 06:33 Eos % (Auto) 1.2 % (0.0-4.3) 10/06/16 06:33 Baso % (Auto) 0.4 % (0.0-1.8) 10/06/16 06:33 Lymph # 2.5 K/mm3 (1.2-5.4) 10/06/16 06:33 [place] # 1.0 K/mm3 (0.0-0.8) H 10/06/16 06:33 Eos # 0.1 K/mm3 (0.0-0.4) 10/06/16 06:33 Baso # 0.0 K/mm3 (0.0-0.1) 10/06/16 06:33 Seg Neutrophils % 67.6 % (40.0-70.0) 10/06/16 06:33 Seg Neutrophils # 7.6 K/mm3 (1.8-7.7) 10/06/16 06:33 Sodium 140 mmol/L (137-145) 10/09/16 05:01 Potassium 3.8 mmol/L (3.6-5.0) 10/09/16 05:01 Chloride 103.6 mmol/L (98-107) 10/09/16 05:01 Carbon Dioxide 23 mmol/L (22-30) 10/09/16 05:01 Anion Gap 17 mmol/L 10/09/16 05:01 BUN 6 mg/dL (9-20) L 10/09/16 05:01 Creatinine 0.7 mg/dL (0.8-1.5) L 10/09/16 05:01 Estimated GFR > 60 ml/min 10/09/16 05:01 BUN/Creatinine Ratio 8.57 % 10/09/16 05:01 Glucose 104 mg/dL (75-100) H 10/09/16 05:01 Calcium 8.4 mg/dL (8.4-10.2) 10/09/16 05:01 Magnesium 2.10 mg/dL (1.7-2.3) 10/08/16 03:55 Total Bilirubin TNR 10/04/16 19:30 AST TNR 10/04/16 19:30 ALT TNR 10/04/16 19:30 Alkaline Phosphatase TNR 10/04/16 19:30 Total Creatine Kinase 2421 units/L (55-170) H 10/09/16 05:01 Total Protein TNR 10/04/16 19:30 Albumin TNR 10/04/16 19:30 Albumin/Globulin Ratio TNR 10/04/16 19:30 Urine Color Stefanie (Yellow) 10/04/16 19:30 Urine Turbidity Clear (Clear) 10/04/16 19:30 Urine pH 6.0 (5.0-7.0) 10/04/16 19:30 Ur Specific [place] 1.030 (1.003-1.030) 10/04/16 19:30 Urine Protein 100 mg/dl mg/dL (Negative) 10/04/16 19:30 Urine Glucose (UA) 50 mg/dL (Negative) 10/04/16 19:30 Urine Ketones 20 mg/dL (Negative) 10/04/16 19:30 Urine Blood Mod (Negative) 10/04/16 19:30 Urine Nitrite Neg (Negative) 10/04/16 19:30 Urine Bilirubin Neg (Negative) 10/04/16 19:30 Urine Urobilinogen 2.0 mg/dL (<2.0) 10/04/16 19:30 Ur Leukocyte Esterase Neg (Negative) 10/04/16 19:30 Urine WBC (Auto) 5.0 /HPF (0.0-6.0) 10/04/16 19:30 Urine RBC (Auto) 110.0 /HPF (0.0-6.0) 10/04/16 19:30 Urine Opiates Screen Presumptive negative 10/04/16 19:30 Urine Methadone Screen Presumptive negative 10/04/16 19:30 Ur Barbiturates Screen Presumptive positive 10/04/16 19:30 Ur Phencyclidine Scrn Presumptive negative 10/04/16 19:30 Ur Amphetamines Screen Presumptive negative 10/04/16 19:30 U Benzodiazepines Scrn Presumptive negative 10/04/16 19:30 Urine Cocaine Screen Presumptive negative 10/04/16 19:30 U Marijuana (THC) Screen Presumptive negative 10/04/16 19:30 Drugs of Abuse Note Disclamer 10/04/16 19:30 Plasma/Serum Alcohol < 0.01 gm% (0-0.07) 10/04/16 20:52
[2016-10-10] MEDS: ATIVAN PO SCH ×4 (00:27→21:27)
[2016-10-10] MEDS: NACL 0.45% 1000 ML 1,000 ML IV SCH ×3 (04:17→21:26)
[2016-10-10 04:48] LABS: Anion Gap 19 mmol/L; Blood Urea Nitrogen 6 mg/dL (9-20); Calcium 8.5 mg/dL (8.4-10.2); Carbon Dioxide 21 mmol/L (22-30); Chloride 105.8 mmol/L (98-107); Creatine Kinase 934 units/L (55-170); Glucose 109 mg/dL (75-100); Potassium 4.4 mmol/L (3.6-5.0); Sodium 141 mmol/L (137-145)
[2016-10-10] MEDS: K-DUR PO SCH (09:21)
[2016-10-10] MEDS: LOVENOX SUB-Q SCH (09:22)
--- NOTE | 2016-10-10 12:19 | Progress Note ---
Assessment and Plan Assessment and plan: Patient is a 31 years old male with past medical history of schizophrenia. brought in by police for acute agitation/and psychosis Acute psychosis Patient on 10:13 Bilateral soft wrist restraint Mental health consulted nonverbal, minimum rigidity, with psychomotor retardation. No gestures of SI/HI' s. CK elevated and trending down. Possible catatonia. UDS positive for Barbituates ANN/vasomotor nephropathy creatinine trending down now resolved sp IVF Rhabdomyolysis Elevated Creatine Kinase, improving continue IVF hydration Hypernatremia- resolved with IVF Hypokalemia- resolved with repletion Mg level is normal Closely monitor electrolytes Leukocytosis stable, no sign of infection DVT prophylaxis lovenox History Interval history: patient still confused and actively psychotic on 1013 Hospitalist Physical - Physical exam Narrative exam: General: Patient appears well in no distress HEENT: MMM, EOMI cardiac: S1-S2 heard lungs: clear to auscultation, abdomen: soft, nontender, nondistended bowel sounds positive extremities: no edema clubbing or cyanosis Skin: no rash or lesion Neuro: no focal deficit Psych: lacks insight, disorganized - Constitutional Vitals: Temp Pulse Resp BP Pulse Ox 98.7 F 0 L 18 119/56 98 10/10/16 08:25 10/10/16 08:25 10/10/16 08:25 10/10/16 08:25 10/10/16 08:25 General appearance: Present: no acute distress Results - Labs CBC & Chem 7: 10/06/16 06:33 10/10/16 03:39 Labs: Laboratory Last Values WBC 11.3 K/mm3 (4.5-11.0) H 10/06/16 06:33 RBC 4.82 M/mm3 (3.65-5.03) 10/06/16 06:33 Hgb 12.7 gm/dl (11.8-15.2) 10/06/16 06:33 Hct 39.0 % (35.5-45.6) 10/06/16 06:33 MCV 81 fl (84-94) L 10/06/16 06:33 MCH 26 pg (28-32) L 10/06/16 06:33 MCHC 33 % (32-34) 10/06/16 06:33 RDW 14.2 % (13.2-15.2) 10/06/16 06:33 Plt Count 291 K/mm3 (140-440) 10/06/16 06:33 Lymph % (Auto) 22.2 % (13.4-35.0) 10/06/16 06:33 [place] % (Auto) 8.6 % (0.0-7.3) H 10/06/16 06:33 Eos % (Auto) 1.2 % (0.0-4.3) 10/06/16 06:33 Baso % (Auto) 0.4 % (0.0-1.8) 10/06/16 06:33 Lymph # 2.5 K/mm3 (1.2-5.4) 10/06/16 06:33 [place] # 1.0 K/mm3 (0.0-0.8) H 10/06/16 06:33 Eos # 0.1 K/mm3 (0.0-0.4) 10/06/16 06:33 Baso # 0.0 K/mm3 (0.0-0.1) 10/06/16 06:33 Seg Neutrophils % 67.6 % (40.0-70.0) 10/06/16 06:33 Seg Neutrophils # 7.6 K/mm3 (1.8-7.7) 10/06/16 06:33 Sodium 141 mmol/L (137-145) 10/10/16 03:39 Potassium 4.4 mmol/L (3.6-5.0) 10/10/16 03:39 Chloride 105.8 mmol/L (98-107) 10/10/16 03:39 Carbon Dioxide 21 mmol/L (22-30) L 10/10/16 03:39 Anion Gap 19 mmol/L 10/10/16 03:39 BUN 6 mg/dL (9-20) L 10/10/16 03:39 Creatinine 0.6 mg/dL (0.8-1.5) L 10/10/16 03:39 Estimated GFR > 60 ml/min 10/10/16 03:39 BUN/Creatinine Ratio 10.00 % 10/10/16 03:39 Glucose 109 mg/dL (75-100) H 10/10/16 03:39 Calcium 8.5 mg/dL (8.4-10.2) 10/10/16 03:39 Magnesium 2.10 mg/dL (1.7-2.3) 10/08/16 03:55 Total Bilirubin TNR 10/04/16 19:30 AST TNR 10/04/16 19:30 ALT TNR 10/04/16 19:30 Alkaline Phosphatase TNR 10/04/16 19:30 Total Creatine Kinase 934 units/L (55-170) H 10/10/16 03:39 Total Protein TNR 10/04/16 19:30 Albumin TNR 10/04/16 19:30 Albumin/Globulin Ratio TNR 10/04/16 19:30 Urine Color Stefanie (Yellow) 10/04/16 19:30 Urine Turbidity Clear (Clear) 10/04/16 19:30 Urine pH 6.0 (5.0-7.0) 10/04/16 19:30 Ur Specific [place] 1.030 (1.003-1.030) 10/04/16 19:30 Urine Protein 100 mg/dl mg/dL (Negative) 10/04/16 19:30 Urine Glucose (UA) 50 mg/dL (Negative) 10/04/16 19:30 Urine Ketones 20 mg/dL (Negative) 10/04/16 19:30 Urine Blood Mod (Negative) 10/04/16 19:30 Urine Nitrite Neg (Negative) 10/04/16 19:30 Urine Bilirubin Neg (Negative) 10/04/16 19:30 Urine Urobilinogen 2.0 mg/dL (<2.0) 10/04/16 19:30 Ur Leukocyte Esterase Neg (Negative) 10/04/16 19:30 Urine WBC (Auto) 5.0 /HPF (0.0-6.0) 10/04/16 19:30 Urine RBC (Auto) 110.0 /HPF (0.0-6.0) 10/04/16 19:30 Urine Opiates Screen Presumptive negative 10/04/16 19:30 Urine Methadone Screen Presumptive negative 10/04/16 19:30 Ur Barbiturates Screen Presumptive positive 10/04/16 19:30 Ur Phencyclidine Scrn Presumptive negative 10/04/16 19:30 Ur Amphetamines Screen Presumptive negative 10/04/16 19:30 U Benzodiazepines Scrn Presumptive negative 10/04/16 19:30 Urine Cocaine Screen Presumptive negative 10/04/16 19:30 U Marijuana (THC) Screen Presumptive negative 10/04/16 19:30 Drugs of Abuse Note Disclamer 10/04/16 19:30 Plasma/Serum Alcohol < 0.01 gm% (0-0.07) 10/04/16 20:52
--- NOTE | 2016-10-10 16:13 | Progress Note ---
Subjective - Reason for Consult Consult date: 10/10/16 Reason for consult: follow up - Chief Complaint Chief complaint: "How are you" Patient is a 31 years old male with past medical history of schizophrenia. Today patient was calm, cooperative but paranoid Denies SI/HI. He is restraint free. CK 934, trending down. He was on Clozaril 25mg prior to the hospitalization. He reported being prescribed it recently by a doctor in [place]. He reports a history of multiple hospitalizations and a previous trial of Zyprexa. No muscular rigidity on exam. No behavioral disturbances reported overnight. Mental Status Exam - Vital signs Last Vital Signs Temp 98.7 F 10/10/16 08:25 Pulse 0 L 10/10/16 08:25 Resp 18 10/10/16 08:25 BP 119/56 10/10/16 08:25 Pulse Ox 98 10/10/16 08:25 Assessment and Plan MSE: Appearance: calm, cooperative Behavior: regular eye contact Speech: regular rate and tone Mood: "Ok" Affect: flat Thought Process: logical, limited in scope Thought Content: denies AVHs, paranoid about people (everyone) being against him/harming him Motor Activity: ambulatory, no rigidity Cognition: A/Ox 3 Insight: limited Judgment: limited Assessment and Plan Impression: Historical Dx: Schizophrenia. Today patient was calm, cooperative but paranoid Denies SI/HI. Restraint free. CK 934, trending down. He was on Clozaril 25mg prior to the hospitalization. He reported being prescribed it recently by a doctor in [place]. He reports a history of multiple hospitalizations and a previous trial of Zyprexa. No muscular rigidity on exam. Recommendation/Plan: Continue 1013 with placement to patient psy services. Continue Ativan 1 mg to PO TID for catatonia. V/S Q4hs and O2 sats. Continue GI/ DVT prophylaxis.
[2016-10-11] MEDS: NACL 0.45% 1000 ML 1,000 ML IV SCH ×2 (04:08→09:12)
[2016-10-11 07:07] LABS: Anion Gap 18 mmol/L; BUN/Creatinine Ratio 7.14; Blood Urea Nitrogen 5 mg/dL (9-20); Calcium 8.6 mg/dL (8.4-10.2); Carbon Dioxide 24 mmol/L (22-30); Chloride 105.8 mmol/L (98-107); Creatine Kinase 358 units/L (55-170); Glucose 91 mg/dL (75-100); Potassium 4.2 mmol/L (3.6-5.0); Sodium 144 mmol/L (137-145)
[2016-10-11] MEDS: ATIVAN PO SCH ×3 (09:13→21:00)
[2016-10-11] MEDS: LOVENOX SUB-Q SCH (09:15)
--- NOTE | 2016-10-11 11:15 | Progress Note ---
Assessment and Plan Assessment and plan: Patient is a 31 years old male with past medical history of schizophrenia. brought in by police for acute agitation/and psychosis Acute psychosis Patient on 10:13 Bilateral soft wrist restraint Mental health consulted nonverbal, minimum rigidity, with psychomotor retardation. No gestures of SI/HI' s. CK elevated and trending down. Possible catatonia. continue ativan UDS positive for Barbituates ANN/vasomotor nephropathy creatinine trending down now resolved sp IVF Rhabdomyolysis Elevated Creatine Kinase, improving continue IVF hydration Hypernatremia- resolved with IVF Hypokalemia- resolved with repletion Mg level is normal Closely monitor electrolytes Leukocytosis stable, no sign of infection DVT prophylaxis lovenox History Interval history: patient still confused and actively psychotic on 1013 Hospitalist Physical - Physical exam Narrative exam: General: Patient appears well in no distress HEENT: MMM, EOMI cardiac: S1-S2 heard lungs: clear to auscultation, abdomen: soft, nontender, nondistended bowel sounds positive extremities: no edema clubbing or cyanosis Skin: no rash or lesion Neuro: no focal deficit Psych: lacks insight, disorganized - Constitutional Vitals: Temp Pulse Resp BP Pulse Ox 98.3 F 88 18 136/71 98 10/11/16 08:08 10/11/16 08:08 10/11/16 08:08 10/11/16 08:08 10/11/16 08:08 General appearance: Present: no acute distress Results - Labs CBC & Chem 7: 10/06/16 06:33 10/11/16 06:08 Labs: Laboratory Last Values WBC 11.3 K/mm3 (4.5-11.0) H 10/06/16 06:33 RBC 4.82 M/mm3 (3.65-5.03) 10/06/16 06:33 Hgb 12.7 gm/dl (11.8-15.2) 10/06/16 06:33 Hct 39.0 % (35.5-45.6) 10/06/16 06:33 MCV 81 fl (84-94) L 10/06/16 06:33 MCH 26 pg (28-32) L 10/06/16 06:33 MCHC 33 % (32-34) 10/06/16 06:33 RDW 14.2 % (13.2-15.2) 10/06/16 06:33 Plt Count 291 K/mm3 (140-440) 10/06/16 06:33 Lymph % (Auto) 22.2 % (13.4-35.0) 10/06/16 06:33 [place] % (Auto) 8.6 % (0.0-7.3) H 10/06/16 06:33 Eos % (Auto) 1.2 % (0.0-4.3) 10/06/16 06:33 Baso % (Auto) 0.4 % (0.0-1.8) 10/06/16 06:33 Lymph # 2.5 K/mm3 (1.2-5.4) 10/06/16 06:33 [place] # 1.0 K/mm3 (0.0-0.8) H 10/06/16 06:33 Eos # 0.1 K/mm3 (0.0-0.4) 10/06/16 06:33 Baso # 0.0 K/mm3 (0.0-0.1) 10/06/16 06:33 Seg Neutrophils % 67.6 % (40.0-70.0) 10/06/16 06:33 Seg Neutrophils # 7.6 K/mm3 (1.8-7.7) 10/06/16 06:33 Sodium 144 mmol/L (137-145) 10/11/16 06:08 Potassium 4.2 mmol/L (3.6-5.0) 10/11/16 06:08 Chloride 105.8 mmol/L (98-107) 10/11/16 06:08 Carbon Dioxide 24 mmol/L (22-30) 10/11/16 06:08 Anion Gap 18 mmol/L 10/11/16 06:08 BUN 5 mg/dL (9-20) L 10/11/16 06:08 Creatinine 0.7 mg/dL (0.8-1.5) L 10/11/16 06:08 Estimated GFR > 60 ml/min 10/11/16 06:08 BUN/Creatinine Ratio 7.14 % 10/11/16 06:08 Glucose 91 mg/dL (75-100) 10/11/16 06:08 Calcium 8.6 mg/dL (8.4-10.2) 10/11/16 06:08 Magnesium 2.10 mg/dL (1.7-2.3) 10/08/16 03:55 Total Bilirubin TNR 10/04/16 19:30 AST TNR 10/04/16 19:30 ALT TNR 10/04/16 19:30 Alkaline Phosphatase TNR 10/04/16 19:30 Total Creatine Kinase 358 units/L (55-170) H 10/11/16 06:08 Total Protein TNR 10/04/16 19:30 Albumin TNR 10/04/16 19:30 Albumin/Globulin Ratio TNR 10/04/16 19:30 Urine Color Stefanie (Yellow) 10/04/16 19:30 Urine Turbidity Clear (Clear) 10/04/16 19:30 Urine pH 6.0 (5.0-7.0) 10/04/16 19:30 Ur Specific [place] 1.030 (1.003-1.030) 10/04/16 19:30 Urine Protein 100 mg/dl mg/dL (Negative) 10/04/16 19:30 Urine Glucose (UA) 50 mg/dL (Negative) 10/04/16 19:30 Urine Ketones 20 mg/dL (Negative) 10/04/16 19:30 Urine Blood Mod (Negative) 10/04/16 19:30 Urine Nitrite Neg (Negative) 10/04/16 19:30 Urine Bilirubin Neg (Negative) 10/04/16 19:30 Urine Urobilinogen 2.0 mg/dL (<2.0) 10/04/16 19:30 Ur Leukocyte Esterase Neg (Negative) 10/04/16 19:30 Urine WBC (Auto) 5.0 /HPF (0.0-6.0) 10/04/16 19:30 Urine RBC (Auto) 110.0 /HPF (0.0-6.0) 10/04/16 19:30 Urine Opiates Screen Presumptive negative 10/04/16 19:30 Urine Methadone Screen Presumptive negative 10/04/16 19:30 Ur Barbiturates Screen Presumptive positive 10/04/16 19:30 Ur Phencyclidine Scrn Presumptive negative 10/04/16 19:30 Ur Amphetamines Screen Presumptive negative 10/04/16 19:30 U Benzodiazepines Scrn Presumptive negative 10/04/16 19:30 Urine Cocaine Screen Presumptive negative 10/04/16 19:30 U Marijuana (THC) Screen Presumptive negative 10/04/16 19:30 Drugs of Abuse Note Disclamer 10/04/16 19:30 Plasma/Serum Alcohol < 0.01 gm% (0-0.07) 10/04/16 20:52
--- NOTE | 2016-10-11 14:19 | Progress Note ---
Subjective - Reason for Consult Consult date: 10/11/16 Reason for consult: follow up - Chief Complaint Chief complaint: "I don't know." Patient is a 31 years old male with past medical history of schizophrenia. Today patient was calm, cooperative but paranoid and reporting non distressing auditory hallucinations. Denies SI/HI. He is restraint free. CK is 358, trending down. He was on Clozaril 25mg prior to the hospitalization. He reported being prescribed it recently by a doctor in [place]. He is eating and drinking well. He denies side effects to the Seroquel. No muscular rigidity on exam. No behavioral disturbances reported overnight. Mental Status Exam - Vital signs Last Vital Signs Temp 98.3 F 10/11/16 08:08 Pulse 88 10/11/16 08:08 Resp 18 10/11/16 08:08 BP 136/71 10/11/16 08:08 Pulse Ox 98 10/11/16 08:08 Assessment and Plan MSE: Appearance: calm, cooperative Behavior: regular eye contact Speech: regular rate and tone Mood: "I don't know" Affect: flat Thought Process: logical, limited in scope Thought Content: non distressing auditory hallucinations, paranoid about people (everyone) being against him/harming him Motor Activity: ambulatory, no rigidity Cognition: A/Ox 3 Insight: limited Judgment: limited Assessment and Plan Impression: Historical Dx: Schizophrenia. Today patient was calm, cooperative but paranoid Denies SI/HI. Restraint free. CK 358, trending down. He was on Clozaril 25mg prior to the hospitalization. He reported being prescribed it recently by a doctor in [place]. He reports a history of multiple hospitalizations and a previous trial of Zyprexa. No muscular rigidity on exam. Recommendation/Plan: Continue 1013 and plan for transfer to inpatient psych, but he will be evaluate to determine if he meets criteria. Continue Ativan 1 mg to PO TID and continue Seroquel. Plan to lower Ativan.
[2016-10-12] MEDS: NACL 0.45% 1000 ML 1,000 ML IV SCH (00:07)
[2016-10-12 06:46] LABS: Anion Gap 17 mmol/L; BUN/Creatinine Ratio 8.33; Blood Urea Nitrogen 5 mg/dL (9-20); Calcium 8.7 mg/dL (8.4-10.2); Carbon Dioxide 24 mmol/L (22-30); Chloride 105.1 mmol/L (98-107); Creatine Kinase 209 units/L (55-170); Glucose 93 mg/dL (75-100); Sodium 142 mmol/L (137-145)
[2016-10-12] MEDS: LOVENOX SUB-Q SCH (10:03)
[2016-10-12] MEDS: ATIVAN PO SCH ×3 (10:03→20:39)
--- NOTE | 2016-10-12 13:23 | Progress Note ---
Assessment and Plan - Patient Problems (1) Renal failure Current Visit: Yes Status: Acute Qualifiers: Renal failure chronicity: R Acute renal failure type: A Chronic kidney disease stage: C Plan to address problem: Patient would acute kidney injury was secondary to vasomotor nephropathy. Has resolved. (2) Acute psychosis Current Visit: Yes Status: Acute Plan to address problem: Psychosis this is been the etiology for his admission. Patient started on Ativan and Seroquel will placed in restraints initially but does not require restraints at this particular time. Seems to have improved. (3) Rhabdomyolysis Current Visit: Yes Status: Acute Qualifiers: Rhabdomyolysis type: R Encounter type: E Plan to address problem: Resolved. History Interval history: Patient is calm today answering questions appropriately. No new concerns today. Clearly still has psychomotor retardation. Hospitalist Physical - Constitutional Vitals: Temp Pulse Resp BP Pulse Ox 98.2 F 84 18 118/68 100 10/12/16 07:15 10/12/16 07:15 10/12/16 07:15 10/12/16 07:15 10/12/16 07:15 General appearance: Present: no acute distress - EENT Eyes: Present: PERRL, EOM intact ENT: hearing intact, clear oral mucosa, dentition normal - Neck Neck: Present: supple, normal ROM - Respiratory Respiratory effort: normal Respiratory: bilateral: CTA - Cardiovascular Rhythm: regular Heart Sounds: Present: S1 & S2 - Extremities Extremities: no ischemia, pulses intact Extremity abnormal: edema - Abdominal General gastrointestinal: soft, non-tender, non-distended, normal bowel sounds - Integumentary Integumentary: Present: clear, warm, dry - Psychiatric Psychiatric: cooperative, agitated - Neurologic Neurologic: other (psychomotor retardation.) Results - Labs CBC & Chem 7: 10/06/16 06:33 10/12/16 05:40 Labs: Laboratory Last Values WBC 11.3 K/mm3 (4.5-11.0) H 10/06/16 06:33 RBC 4.82 M/mm3 (3.65-5.03) 10/06/16 06:33 Hgb 12.7 gm/dl (11.8-15.2) 10/06/16 06:33 Hct 39.0 % (35.5-45.6) 10/06/16 06:33 MCV 81 fl (84-94) L 10/06/16 06:33 MCH 26 pg (28-32) L 10/06/16 06:33 MCHC 33 % (32-34) 10/06/16 06:33 RDW 14.2 % (13.2-15.2) 10/06/16 06:33 Plt Count 291 K/mm3 (140-440) 10/06/16 06:33 Lymph % (Auto) 22.2 % (13.4-35.0) 10/06/16 06:33 [place] % (Auto) 8.6 % (0.0-7.3) H 10/06/16 06:33 Eos % (Auto) 1.2 % (0.0-4.3) 10/06/16 06:33 Baso % (Auto) 0.4 % (0.0-1.8) 10/06/16 06:33 Lymph # 2.5 K/mm3 (1.2-5.4) 10/06/16 06:33 [place] # 1.0 K/mm3 (0.0-0.8) H 10/06/16 06:33 Eos # 0.1 K/mm3 (0.0-0.4) 10/06/16 06:33 Baso # 0.0 K/mm3 (0.0-0.1) 10/06/16 06:33 Seg Neutrophils % 67.6 % (40.0-70.0) 10/06/16 06:33 Seg Neutrophils # 7.6 K/mm3 (1.8-7.7) 10/06/16 06:33 Sodium 142 mmol/L (137-145) 10/12/16 05:40 Potassium 4.0 mmol/L (3.6-5.0) 10/12/16 05:40 Chloride 105.1 mmol/L (98-107) 10/12/16 05:40 Carbon Dioxide 24 mmol/L (22-30) 10/12/16 05:40 Anion Gap 17 mmol/L 10/12/16 05:40 BUN 5 mg/dL (9-20) L 10/12/16 05:40 Creatinine 0.6 mg/dL (0.8-1.5) L 10/12/16 05:40 Estimated GFR > 60 ml/min 10/12/16 05:40 BUN/Creatinine Ratio 8.33 % 10/12/16 05:40 Glucose 93 mg/dL (75-100) 10/12/16 05:40 Calcium 8.7 mg/dL (8.4-10.2) 10/12/16 05:40 Magnesium 2.10 mg/dL (1.7-2.3) 10/08/16 03:55 Total Bilirubin TNR 10/04/16 19:30 AST TNR 10/04/16 19:30 ALT TNR 10/04/16 19:30 Alkaline Phosphatase TNR 10/04/16 19:30 Total Creatine Kinase 209 units/L (55-170) H 10/12/16 05:40 Total Protein TNR 10/04/16 19:30 Albumin TNR 10/04/16 19:30 Albumin/Globulin Ratio TNR 10/04/16 19:30 Urine Color Stefanie (Yellow) 10/04/16 19:30 Urine Turbidity Clear (Clear) 10/04/16 19:30 Urine pH 6.0 (5.0-7.0) 10/04/16 19:30 Ur Specific [place] 1.030 (1.003-1.030) 10/04/16 19:30 Urine Protein 100 mg/dl mg/dL (Negative) 10/04/16 19:30 Urine Glucose (UA) 50 mg/dL (Negative) 10/04/16 19:30 Urine Ketones 20 mg/dL (Negative) 10/04/16 19:30 Urine Blood Mod (Negative) 10/04/16 19:30 Urine Nitrite Neg (Negative) 10/04/16 19:30 Urine Bilirubin Neg (Negative) 10/04/16 19:30 Urine Urobilinogen 2.0 mg/dL (<2.0) 10/04/16 19:30 Ur Leukocyte Esterase Neg (Negative) 10/04/16 19:30 Urine WBC (Auto) 5.0 /HPF (0.0-6.0) 10/04/16 19:30 Urine RBC (Auto) 110.0 /HPF (0.0-6.0) 10/04/16 19:30 Urine Opiates Screen Presumptive negative 10/04/16 19:30 Urine Methadone Screen Presumptive negative 10/04/16 19:30 Ur Barbiturates Screen Presumptive positive 10/04/16 19:30 Ur Phencyclidine Scrn Presumptive negative 10/04/16 19:30 Ur Amphetamines Screen Presumptive negative 10/04/16 19:30 U Benzodiazepines Scrn Presumptive negative 10/04/16 19:30 Urine Cocaine Screen Presumptive negative 10/04/16 19:30 U Marijuana (THC) Screen Presumptive negative 10/04/16 19:30 Drugs of Abuse Note Disclamer 10/04/16 19:30 Plasma/Serum Alcohol < 0.01 gm% (0-0.07) 10/04/16 20:52
--- NOTE | 2016-10-12 14:07 | Progress Note ---
Subjective - Reason for Consult Consult date: 10/12/16 Reason for consult: Psychiatry Follow-up - Chief Complaint Chief complaint: "I lawanda understand what happened" Patient is a 31 years old male with past medical history of schizophrenia. Today patient was calm and cooperative with passive paranoia. He stated that he saw his mother yesterday and now have a better understanding on how he ended up at [facility]. He stated that he came to the [place] area to visit his parents. He stated that the paranoia he experience has always been present ( chronic). He denies SI/HI's and AVH's. Per the staff, no behavioral disturbances overnight and he is completing his ADL's. Mental Status Exam - Vital signs Last Vital Signs Temp 98.2 F 10/12/16 07:15 Pulse 84 10/12/16 07:15 Resp 18 10/12/16 07:15 BP 118/68 10/12/16 07:15 Pulse Ox 100 10/12/16 07:15 - Exam Narrative exam: MSE: Appearance: calm, cooperative Behavior: regular eye contact Speech: regular rate and tone Mood: "okay" Affect: congruent to mood Thought Process: logical, limited in scope Thought Content: denies SI/HI's and AVH's, passive paranoia Motor Activity: ambulatory, no rigidity Cognition: A/Ox 3 Insight: limited Judgment: limited Assessment and Plan Impression: Historical Dx: Schizophrenia. Today patient was calm and cooperative with passive paranoia. Denies SI/HI's. Restraint free. CK 209, trending down. No muscular rigidity noted. Recommendation/Plan: Rescind 1013. We want to observe patient for 24 hours. Modify Ativan to 0.5 mg PO TID and Seroquel to 100 mg PO HS.
[2016-10-13 05:57] LABS: Anion Gap 19 mmol/L; BUN/Creatinine Ratio 11.42; Blood Urea Nitrogen 8 mg/dL (9-20); Calcium 8.8 mg/dL (8.4-10.2); Carbon Dioxide 24 mmol/L (22-30); Chloride 101.2 mmol/L (98-107); Creatine Kinase 154 units/L (55-170); Glucose 78 mg/dL (75-100); Potassium 3.8 mmol/L (3.6-5.0); Sodium 140 mmol/L (137-145)
--- NOTE | 2016-10-13 08:25 | Progress Note ---
Subjective - Reason for Consult Consult date: 10/13/16 Reason for consult: Psychiatry Follow-up - Chief Complaint Chief complaint: "How are you" Patient is a 31 years old male with past medical history of schizophrenia. Today patient was calm and cooperative. Patient is A/O x 4. He denies feeling like something or someone is out to harm him. He stated that he expect his family to visit with him today. He acknowledged that he has a psychiatrist in [place] that he see for outpatient psy services. He denies SI /HI's and AVH's. He denies any side effects of his medications. Per the staff, no behavioral disturbances overnight. Mental Status Exam - Vital signs Last Vital Signs Temp 98.7 F 10/12/16 22:00 Pulse 78 10/12/16 22:00 Resp 18 10/12/16 22:00 BP 112/60 10/12/16 22:00 Pulse Ox 100 10/12/16 22:00 - Exam Narrative exam: MSE: Appearance: calm, cooperative Behavior: regular eye contact Speech: regular rate and tone Mood: "okay" Affect: congruent to mood Thought Process: logical, limited in scope Thought Content: denies SI/HI's and AVH's Motor Activity: ambulatory, no rigidity Cognition: A/Ox 3 Insight: fair Judgment: fair I Assessment and Plan Impression: Historical Dx: Schizophrenia. Today patient was calm and cooperative. Denies SI/HI's. Restraint free. CK 154 , trending down. No muscular rigidity noted. Recommendation/Plan: Continue Ativan to 0.5 mg PO TID with (taper) and Seroquel 100 mg PO HS. Modify Ativan to 0.5 mg BID 10/14/2016. Patient does have a psychiatrist in [place] for outpatient psy services. Also, he will be given outpatient psy services for the local area. Will follow-up with patient until discharge.
[2016-10-13 09:07] VITALS: BP 113/55
[2016-10-13] MEDS: ATIVAN PO SCH ×2 (10:00→14:54)
[2016-10-13] MEDS: LOVENOX SUB-Q SCH (10:00)
--- NOTE | 2016-10-13 13:23 | Discharge Summary ---
Providers - Providers Date of Admission: 10/05/16 10:44 Date of discharge: 10/13/16 Attending physician: BETTY WILEY Primary care physician: CARPENTER WO[facility]EN [facility] Hospitalization Condition: Stable Hospital course: Patient is a 31 years old male with past medical history of schizophrenia. brought in by police for acute agitation/and psychosis Discharge diagnosis and management: Acute psychosis Patient is s/p 10:13 Mental health was consulted UDS was positive for Barbituates ANN/vasomotor nephropathy creatinine trending down now resolved sp IVF Rhabdomyolysis Elevated Creatine Kinase, improving continue IVF hydration Hypernatremia- resolved with IVF Hypokalemia- resolved with repletion Mg level is normal Closely monitor electrolytes Leukocytosis stable, no sign of infection Disposition: DC-01 TO HOME OR SELFCARE Time spent for discharge: 32 minutes Core Measure Documentation - Palliative Care Palliative Care/ Comfort Measures: Not Applicable - Core Measures Any of the following diagnoses?: none Exam - Constitutional Vitals: Temp Pulse Resp BP Pulse Ox 97.6 F 91 H 15 113/55 97 10/13/16 07:15 10/13/16 07:15 10/13/16 07:15 10/13/16 07:15 10/13/16 07:15 General appearance: Present: no acute distress, well-nourished - EENT Eyes: Present: PERRL ENT: hearing intact, clear oral mucosa - Neck Neck: Present: supple, normal ROM - Respiratory Respiratory effort: normal Respiratory: bilateral: CTA - Cardiovascular Heart Sounds: Present: S1 & S2. Absent: rub, click - Extremities Extremities: pulses symmetrical, No edema Peripheral Pulses: within normal limits - Abdominal General gastrointestinal: Present: soft, non-tender, non-distended, normal bowel sounds - Integumentary Integumentary: Present: clear, warm, dry - Musculoskeletal Musculoskeletal: gait normal, strength equal bilaterally - Psychiatric Psychiatric: appropriate mood/affect, memory intact - Neurologic Neurologic: CNII-XII intact, moves all extremities Plan Activity: advance as tolerated Weight Bearing Status: Weight Bear as Tolerated Diet: regular Follow up with: PRIMARY CARE, [Primary Care Provider] - 3-5 Days Prescriptions: Quetiapine Fumarate [SEROquel] 100 mg PO QHS #30 tab LORazepam [Ativan] 0.5 mg PO BID #3 tablet
== END 2016-10-13 15:30 | disposition home or self-care (01) | DRG 885 ==
LOC: ED 15:19 → 3A 10-05 10:44
PROVIDERS: ADMIT Hospitalist; ATTEND Internal Medicine
DX: F23 Brief psychotic disorder (principal); N17.0 Acute kidney failure with tubular necrosis; M62.82 Rhabdomyolysis; E87.0 Hyperosmolality and hypernatremia; E87.6 Hypokalemia; D72.829 Elevated white blood cell count, unspecified
CPT/HCPCS: 36415; 80048; 80053; 80307; 80320; 81001; 82550; 83735; 85025; 96361; 96365; 96372; G0480; J1650; J2060; J3480; J3486; J7030